=== PATIENT | female | born 1950 | race Caucasian/White ===

== ENCOUNTER 2016-12-22 01:39 | Emergency (ER) | payer MEDICARE, OTHER ==
[2016-12-22] MEDS ORDERED: LIDOCAINE 2% VISCOUS SOLN 20 ML UDCUP PO ONE (03:13)
[2016-12-22] MEDS ORDERED: MAG HYDROX/AL HYDROX/SIMETH SUSP 30 ML UDCUP PO ONE (03:13)
--- NOTE | 2016-12-22 03:15 | ER Document Report ---
ED Medical Screen (RME) - General Chief Complaint: Foreign Body Stated Complaint: TROUBLE SWALLOWING Time Seen by Provider: 12/22/16 03:13 Notes: 66-year-old female, chief complaint of irritation in the back of the throat and the sensation of having difficulty swallowing. She states she has tried eating both food and water and has no problem with either one, however she cannot stop clearing her throat and has a sensation of a foreign body in her throat. She had a tooth extracted during the day. She states she was doing fine until the evening. She states she wonders if she is having "a panic attack". She denies any eating anything with sharp elements or bony elements. She denies difficulty breathing. - Related Data Allergies/Adverse Reactions: erythromycin base Allergy (Verified 12/22/16 01:50) Past Medical History - Past Medical History Cardiac Medical History: Denies: Hx Heart Attack, Hx Hypertension Pulmonary Medical History: Denies: Hx Asthma Neurological Medical History: Denies: Hx Cerebrovascular Accident, Hx Seizures Renal/ Medical History: Denies: Hx Peritoneal Dialysis GI Medical History: Denies: Hx Hepatitis, Hx Hiatal Hernia, Hx Ulcer Infectious Medical History: Denies: Hx Hepatitis Past Surgical History: Reports: Hx Hysterectomy. Denies: Hx Mastectomy, Hx Open Heart Surgery, Hx Pacemaker Physical Exam - General General appearance: Appears well, Anxious In distress: None Course - Re-evaluation Re-evalutation: Patient swallows water on examination without any difficulty. She wants an x- ray for further evaluation. Patient is somewhat anxious.
--- NOTE | 2016-12-22 04:13 | RADIOLOGY REPORT (SQ) ---
EXAM DESCRIPTION: SOFT TISSUE NECK COMPLETED DATE/TIME: 12/22/2016 3:23 am REASON FOR STUDY: ? foreign body or narrowing COMPARISON: None. NUMBER OF VIEWS: Two views. TECHNIQUE: AP and lateral radiographic image of the soft tissues of the neck. LIMITATIONS: None. FINDINGS: EPIGLOTTIS: Normal. Contour normal. Aryepiglottic folds normal. PREVERTEBRAL SOFT TISSUES: Normal. No soft tissue swelling. SUBGLOTTIC AREA: Normal. No narrowing. RETROPHARYNGEAL SPACE: Normal. No soft tissue masses. BONES: [id number]-[id number] disc desiccation and spondylosis of the mid cervical spine between the C3 and C7 levels, worst at the C4-C5 level. 0.2 cm degenerative C4 retrolisthesis. LUNG APICES: Normal. OTHER: No radiopaque foreign body. No other significant finding. IMPRESSION: NEGATIVE STUDY OF THE SOFT TISSUES OF THE NECK. Moderate cervical disc desiccation and spondylosis. TECHNICAL DOCUMENTATION: JOB ID: [id number] [employer]- All Rights Reserved
[2016-12-22] MEDS ORDERED: LORAZEPAM 1 MG TABLET PO ONE (06:54)
--- NOTE | 2016-12-22 07:23 | RADIOLOGY REPORT (SQ) ---
EXAM DESCRIPTION: CT SOFT TISSUE NECK WITHOUT COMPLETED DATE/TIME: 12/22/2016 7:08 am REASON FOR STUDY: difficutly swallowing COMPARISON: CR, same day. TECHNIQUE: Noncontrast scanning from skull base through lung apices with review of bone, soft tissue and lung windows. Reconstructed coronal and sagittal MPR images reviewed. All images stored on PAC S. All CT scanners at this facility use dose modulation, iterative reconstruction, and/or weight based d osing when appropriate to reduce radiation dose to as low as reasonably achievable (ALARA). [facility]: Dose Right [facility]: CareDose [facility]: Dose Right [facility]: Teradose 4D [facility]: [employer] RADIATION DOSE: Up-to-date CT equipment and radiation dose reduction techniques were employed. CTDIv ol: 8.4 mGy. DLP: 249 mGy-cm. mGy. LIMITATIONS: No IV contrast. Amalgam artifact. FINDINGS: SKULL BASE: Intact. MAJOR SALIVARY GLANDS: No solid or cystic masses. No inflammatory changes. LYMPHADENOPATHY: No adenopathy. MUCOSAL MASSES OR ASYMMETRY: Indeterminate, asymmetric soft tissue material at the right paracentral base of the tongue measures 1.5 cm. Patent nasopharynx. LARYNX/CORDS: No abnormal findings. LUNG APICES: Clear. BONES: [id number]-[id number] disc desiccation between the C4 and C7 levels. 0.2 cm degenerative C7 emory listhesis. THYROID: Normal size. No masses. PARANASAL SINUSES: Mild mucosal thickening. Right maxillary retention cyst -mucocele measuring up to 1.6 cm. Mild left ethmoid mucosal thickening. Mild left frontal sinus mucosal thickening. OTHER: Atherosclerosis. IMPRESSION: Asymmetric soft tissue prominence at the right paracentral base of the tongue ; cannot e xclude neoplasm. Recommend further evaluation with contrast MRI of the neck and tongue and/or ENT co nsultation. TECHNICAL DOCUMENTATION: JOB ID: [id number] Quality ID # [id number]: Final reports with documentation of one or more dose reduction techniques (e.g., Au tomated exposure control, adjustment of the mA and/or kV according to patient size, use of iterative reconstruction technique) 2010 [employer]- All Rights Reserved
--- NOTE | 2016-12-22 07:36 | ER Document Report ---
ED General - General Chief Complaint: Foreign Body Stated Complaint: TROUBLE SWALLOWING Time Seen by Provider: 12/22/16 03:13 Mode of Arrival: Ambulatory Information source: Patient Notes: 66-year-old female presents with complaints of swallowing. Patient notes she is able to eat and drink with no difficulty but feels like there is something irritating her throat. Patient denies any nausea or vomiting - HPI Onset: Last week Onset/Duration: Persistent Quality of pain: No pain Severity: Mild Pain Level: Denies Associated symptoms: Other Exacerbated by: Food Relieved by: Denies Similar symptoms previously: No Recently seen / treated by doctor: No - Related Data Allergies/Adverse Reactions: erythromycin base Allergy (Verified 12/22/16 01:50) Past Medical History - Social History Smoking Status: Never Smoker Cigarette use (# per day): No Chew tobacco use (# tins/day): No Smoking Education Provided: No Family History: Reviewed & Not Pertinent Patient has suicidal ideation: No Patient has homicidal ideation: No - Past Medical History Cardiac Medical History: Denies: Hx Heart Attack, Hx Hypertension Pulmonary Medical History: Denies: Hx Asthma Neurological Medical History: Denies: Hx Cerebrovascular Accident, Hx Seizures Renal/ Medical History: Denies: Hx Peritoneal Dialysis GI Medical History: Denies: Hx Hepatitis, Hx Hiatal Hernia, Hx Ulcer Infectious Medical History: Denies: Hx Hepatitis Past Surgical History: Reports: Hx Hysterectomy. Denies: Hx Mastectomy, Hx Open Heart Surgery, Hx Pacemaker Review of Systems - Review of Systems Notes: REVIEW OF SYSTEMS: CONSTITUTIONAL : Denies fever, chills, or sweats. Denies recent illness. EENT: Admits difficulty swallowing CARDIOVASCULAR: Denies chest pain. Denies palpitations or racing or irregular heart beat. Denies ankle edema. RESPIRATORY: Denies cough, cold, or chest congestion. Denies shortness of breath, difficulty breathing, or wheezing. GASTROINTESTINAL: Denies abdominal pain or distention. Denies nausea, vomiting , or diarrhea. Denies blood in vomitus, stools, or per rectum. Denies black, tarry stools. Denies constipation. GENITOURINARY: Denies difficulty urinating, painful urination, burning, frequency, blood in urine, or discharge. FEMALE GENITOURINARY: Denies vaginal bleeding, heavy or abnormal periods, irregular periods. Denies vaginal discharge or odor. MUSCULOSKELETAL: Denies back or neck pain or stiffness. Denies joint pain or swelling. SKIN: Denies rash, lesions or sores. HEMATOLOGIC : Denies easy bruising or bleeding. LYMPHATIC: Denies swollen, enlarged glands. NEUROLOGICAL: Denies confusion or altered mental status. Denies passing out or loss of consciousness. Denies dizziness or lightheadedness. Denies headache. Denies weakness or paralysis or loss of use of either side. Denies problems with gait or speech. Denies sensory loss, numbness, or tingling. Denies seizures. PSYCHIATRIC: Denies anxiety or stress. Denies depression, suicidal ideation, or homicidal ideation. ALL OTHER SYSTEMS REVIEWED AND NEGATIVE. PHYSICAL EXAMINATION: GENERAL: Well-appearing, well-nourished and in no acute distress. HEAD: Atraumatic, normocephalic. EYES: Pupils equal round and reactive to light, extraocular movements intact, conjunctiva are normal. ENT: Nares patent, oropharynx clear without exudates. Moist mucous membranes. NECK: Normal range of motion, supple without lymphadenopathy LUNGS: Breath sounds clear to auscultation bilaterally and equal. No wheezes rales or rhonchi. HEART: Regular rate and rhythm without murmurs ABDOMEN: Soft, nontender, nondistended abdomen. No guarding, no rebound. No masses appreciated. Female : deferred Musculoskeletal: Normal range of motion, no pitting or edema. No cyanosis. NEUROLOGICAL: Cranial nerves grossly intact. Normal speech, normal gait. Normal sensory, motor exams PSYCH: Normal mood, normal affect. SKIN: Warm, Dry, normal turgor, no rashes or lesions noted. Dictation was performed using [employer] voice recognition software Physical Exam - Vital signs Vitals: Temp Pulse BP Pulse Ox 98.7 F 86 219/94 H 97 12/22/16 01:49 12/22/16 01:49 12/22/16 01:49 12/22/16 01:49 Course - Re-evaluation Re-evalutation: 12/22/16 15:05 X-ray noted no acute abnormality, CT was performed and there is asymmetry at the base of the tongue, as a result I did request patient be seen by ENT, they state they will do so immediately After performing a Medical Screening Examination, I estimate there is LOW risk for CENTRAL CORD SYNDROME, EPIDURAL MASS LESION, SEVERE SPINAL STENOSIS, ARTERIAL DISSECTION, MENINGITIS, or ACUTE CORONARY SYNDROME, thus I consider the discharge disposition reasonable. I have reevaluated this patient multiple times and no significant life threatening changes are noted. The patient and I have discussed the diagnosis and risks, and we agree with discharging home to follow-up on an outpatient basis with the understanding that symptoms and presentations can change. We also discussed returning to the Emergency Department immediately if new or worsening symptoms occur. We have discussed the symptoms which are most concerning (e.g., saddle anesthesia, urinary or bowel incontinence or retention, changing or worsening pain) that necessitate immediate return. - Vital Signs Vital signs: Temp Pulse Resp BP Pulse Ox 98.1 F 81 16 150/85 H 98 12/22/16 07:51 12/22/16 07:51 12/22/16 07:51 12/22/16 07:51 12/22/16 07:51 - Diagnostic Test Radiology reviewed: Image reviewed, Reports reviewed - Report given to patient Discharge - Discharge Clinical Impression: Tongue mass Condition: Stable Disposition: HOME, SELF-CARE Instructions: Dysphagia ([facility]) Additional Instructions: Please contact the following office for an appointment tomorrow or returm immediately if there are any other concerns [facility] Address: [address] [place] [id number]
[2016-12-22 08:04] VITALS: BP 150/85
== END 2016-12-22 07:52 | disposition home or self-care (01) ==
LOC: ER 01:39
DX: K14.8 Other diseases of tongue (principal); R13.10 Dysphagia, unspecified; Z88.1 Allergy status to other antibiotic agents
CPT/HCPCS: 99284; 70360; 70490; J3490; A9270